=== PATIENT | female | born 1960 | race Two or more races ===

== ENCOUNTER 2020-02-20 23:25 | Emergency (ER) | payer MEDICAID ==
[~2020-02-20] VITALS: Ht 157.5 cm; Wt 54.5 kg
[2020-02-21 00:05] LABS: BASOPHILS % (AUTO) 0.7 % (0.0-2.0); EOSINOPHILS % (AUTO) 1.9 % (1.0-6.0); HEMOGLOBIN 14.5 g/dL (12.0-16.0); LYMPHOCYTES # (AUTO) 2.1 K/uL (1.0-4.8); LYMPHOCYTES % (AUTO) 37.3 % (22.0-44.0); MEAN CORPUSCULAR HEMOGLOBIN 27.1 pg (26.0-34.0); MEAN CORPUSCULAR VOLUME 82 fL (80-100); MONOCYTES # (AUTO) 0.4 K/uL (0.1-1.0); MONOCYTES % (AUTO) 6.3 % (2.0-9.0); NEUTROPHILS # (AUTO) 3.1 K/uL (1.8-7.7); NEUTROPHILS % (AUTO) 53.8 % (40.0-70.0); PLATELET COUNT (AUTO) 193 K/uL (150-450); RED BLOOD CELL COUNT(AUTO) 5.37 MIL/uL (4.00-5.20); RED CELL DISTRIBUTION WIDTH 13.1 % (11.5-14.5)
[2020-02-21 00:13] LABS: ANION GAP 8 mmol/L (8-16); CALCIUM, TOTAL 9.1 mg/dL (8.8-10.5); CARBON DIOXIDE 30 mmol/L (22-29); CHLORIDE 106 mmol/L (98-107); CREATININE 0.63 mg/dL (0.60-1.30); GLOMERULAR FILTR. RATE CALC > 60 mL/min (>60); GLUCOSE,RANDOM 363 mg/dL (70-110); POTASSIUM 3.9 mmol/L (3.5-5.1); SODIUM SERUM 144 mmol/L (136-145); UREA NITROGEN, BLOOD 13 mg/dL (7-18)
[2020-02-21 00:18] LABS: ALANINE AMINOTRANSFERASE 16 U/L (12-78); ALBUMIN 2.9 g/dL (3.4-5.0); ALKALINE PHOSPHATASE 92 U/L (46-116); ASPARTATE AMINOTRANSFERASE 15 U/L (15-37); BILIRUBIN,TOTAL 0.5 mg/dL (0.1-1.0); TOTAL PROTEIN, SERUM 6.1 g/dL (6.4-8.2)
[2020-02-21 01:21] LABS: HCG,QUANTITATIVE 5 mIU/mL (0-6)
[2020-02-21 02:30] LABS: AMPHET/METH SCREEN,URINE POSITIVE (NEGATIVE); BARBITURATE SCREEN, URINE NEGATIVE (NEGATIVE); BENZODIAZEPINES SCREEN,URINE NEGATIVE (NEGATIVE); CANNABINOID SCREEN,URINE NEGATIVE (NEGATIVE); COCAINE SCREEN,URINE NEGATIVE (NEGATIVE); METHADONE SCREEN, URINE NEGATIVE (NEGATIVE); OPIATE SCREEN,URINE NEGATIVE (NEGATIVE); PHENCYCLIDINE SCREEN,URINE NEGATIVE (NEGATIVE)
[2020-02-21] MEDS ORDERED: INSULIN REGULAR, HUMAN 100 UNITS/ML IVP ONE (10:00)
[2020-02-21] MEDS ORDERED: SODIUM CHLORIDE 0.9% 1,000 ML IV ONE (10:00)
[2020-02-21 11:20] VITALS: BP 134/69
[2020-02-21 11:37] LABS: GLUCOSE,POINT OF CARE 257 MG/DL (70-110)
== END 2020-02-21 11:38 | disposition home or self-care (01) ==
LOC: EMS 23:25
DX: F20.9 Schizophrenia, unspecified (principal); E11.65 Type 2 diabetes mellitus with hyperglycemia; F17.210 Nicotine dependence, cigarettes, uncomplicated; F32.9 Major depressive disorder, single episode, unspecified; I10 Essential (primary) hypertension
CPT/HCPCS: 36415; 80053; 80307; 82962; 84702; 85025; 96361; 96374; 99284; 99406; G0480; J1815; J7030

== ENCOUNTER 2025-08-20 06:22 | Day surgery (SDC) | payer OTHER, MEDICAID ==
[~2025-08-20] VITALS: Ht 157.5 cm; Wt 56.8 kg
[2025-08-20] MEDS ORDERED: SODIUM CHLORIDE 0.9% 1,000 ML ONE (06:45)
[2025-08-20] MEDS: SODIUM CHLORIDE 0.9% 1,000 ML IV ONE (07:25)
[2025-08-20] MEDS ORDERED: MIDAZOLAM HCL 2 MG/2 ML VIAL ONE (07:28)
[2025-08-20] MEDS ORDERED: FentaNYL CITRATE PF 100 MCG/2 ML VIAL ONE (07:29)
[2025-08-20] MEDS ORDERED: MONT-35 PO (07:37)
[2025-08-20] MEDS ORDERED: ATOR40TA28 PO (07:37)
[2025-08-20] MEDS ORDERED: FAMO20 PO (07:37)
[2025-08-20] MEDS ORDERED: RISP-31 PO (07:37)
[2025-08-20] MEDS ORDERED: AMLO-258 PO (07:37)
[2025-08-20] MEDS ORDERED: [UNRECOGNIZED DRUG - CODE] PO (07:37)
[2025-08-20] MEDS ORDERED: METF-1211 PO (07:37)
[2025-08-20] MEDS ORDERED: DAPA10TA PO (07:37)
[2025-08-20 08:10] LABS: GLUCOMETER DEV NAME(LOC) SDS.; GLUCOSE,POINT OF CARE 119 MG/DL (70-110)
[2025-08-20 09:25] VITALS: PULSE 59; RESP 20; O2SAT 98
[2025-08-20] MEDS ORDERED: ALBUTEROL SULFATE 2.5 MG/0.5 ML NEB SOLUTION NEB ONE (12:00)
[2025-08-20] MEDS ORDERED: LIDOCAINE 2% 11 ML JELLY ONE (12:00)
[2025-08-20] MEDS ORDERED: BENZOCAINE 20% 50 MCG/SPRAY 57 GM ONE (12:00)
[2025-08-20] MEDS ORDERED: LIDOCAINE 4% 50 ML SOLUTION ONE (12:00)
== END 2025-08-20 13:10 | disposition home or self-care (01) ==
LOC: SURGERY 06:22
PROVIDERS: ATTEND Internal Medicine Critical Care Medicine
DX: J38.4 Edema of larynx (principal); B37.0 Candidal stomatitis; R05.3 Chronic cough; R06.2 Wheezing; R49.0 Dysphonia; R04.2 Hemoptysis; R91.8 Other nonspecific abnormal finding of lung field; E11.9 Type 2 diabetes mellitus without complications; E78.00 Pure hypercholesterolemia, unspecified; I10 Essential (primary) hypertension; Z87.891 Personal history of nicotine dependence
CPT/HCPCS: 31623; 82962; 87206; 87101; 87220; 87070; 31624; 71045; 87015; J3010; J2250; J2919; J7030; 88108; J7613; Z7610